=== PATIENT | female | born 1960 | race Caucasian/White ===

== ENCOUNTER 2016-10-13 09:58 | Emergency (ER) | payer BC ==
[2016-10-13] MEDS ORDERED: IPRATROPIUM/ALBUTEROL 0.5/3 MG 3 ML AMPUL.NEB INHALATION ONE (10:47)
--- NOTE | 2016-10-13 11:12 | RADIOLOGY REPORT ---
HISTORY: Cough COMPARISON: None. FINDINGS: 2 views of the chest obtained. Hyperinflated compatible with emphysema/COPD. There is no consolidation, effusion, pneumothorax or ma ss identified. Heart and mediastinal contours appear normal. No osseous lesion seen. IMPRESSION: 1. Hyperinflated lungs suggesting emphysema/COPD. 2. No radiographic evidence of active process in the chest. Final Electronic Signature: This report was electronically signed by Epifanio Mccray MD on 10/13/2016 11:10 AM. leti /
--- NOTE | 2016-10-13 11:46 | ER NURSING DOCUMENTATION ---
Nurse's Notes [facility] Name:Kenyatta Flanagan Age:56 yrs Sex:Female :1960 Arrival Date:10/13/2016 Time:09:58 Bed1 Private MD: Diagnosis:Upper Respiratory Infection (URI);Pneumonia Bacterial-POSSIBLE Presentation: 10/13 10:00 Acuity: BECKI 3 rh 10:10 Presenting complaint: Patient states: pt became sick with cough, sinus rh congestions, sore throat. She arrived in [place] on Thursday and c/o lightheadedness and dizziness today. Pt has productive cough. Transition of care: Home. 10:10 Method Of Arrival: Private Vehicle Triage Assessment: 10:11 General: Appears in no apparent distress, Behavior is cooperative. Pain: Complains of rh pain in chest. EENT: Oral mucosa is dry. Neuro: Level of Consciousness is awake, alert, obeys commands. Cardiovascular: Capillary refill < 3 seconds Chest pain is denied. Respiratory: Airway is patent Respiratory effort is even, unlabored, Breath sounds with wheezes in right posterior lower lobe Reports shortness of breath cough that is productive, the patient has mild shortness of breath. GI: Denies diarrhea, nausea, vomiting. : No deficits noted. Derm: Skin is intact, is healthy with good turgor, Skin is pink, warm & dry. Musculoskeletal: Circulation, motion, and sensation intact Range of motion intact in all extremities. Historical: - Allergies: No known drug Allergies; - Home Meds: 1. None - PMHx: None; - PSHx: None; - Tetanus: < 10 years. - Ebola Screening: : Patient negative for fever greater than or equal to 101.5 degrees Fahrenheit, and additional compatible Ebola Virus Disease symptoms. - Immunization history: Flu Vaccine < 1 year. - Social history: Smoking status: Patient states was never smoker of tobacco. Screenin:13 Infectious Disease Risk None. Abuse screen: Denies threats or abuse. Denies injuries rh from another. Nutritional screening: No deficits noted. Assessment: 10:13 See Triage Assessment done by same RN. 10:20 Reassessment: Pt does not want and IV or lab work completed until she has her chest rh x-ray done. . Vital Signs: 10:12 BP 95 / 68; Pulse 109; Resp 19; Temp 98.0(O); Pulse Ox 88% on R/A; Weight 68.04 kg; rh Height 5 ft. 4 in. (162.56 cm); Pain 410; 11:45 BP 109 / 63; Pulse 96; Resp 17; Pulse Ox 89% on R/A; rh 10:12 Body Mass Index 25.75 (68.04 kg, 162.56 cm) rh 11:45 Dr. Duque is fine with the oxygen sat on this patient. ED Course: 09:59 Patient arrived in ED. dp 10:00 Stacey Trevizo is Primary Nurse. 10:00 Triage completed. 10:00 Oxygen Oxygen administration via nasal cannula @ 2L/min. 10:13 Notified ED Physician of patient's arrival and chief complaint. Dr. Carty notified. rh 10:13 Valuables Remains with patient Patient has correct armband on for positive rh identification. Placed in gown. Bed in low position. Call light in reach. Side rails up X 1. 10:51 Derrick Carty MD is Attending Physician. tl1 Administered Medications: 10:43 Drug: DuoNeb (Albuterol 2.5 mg, Atrovent 0.5 mg); 3 ml; Route: Nebulizer; 11:46 Follow up: Response: Wheezing diminished rh Outcome: 10:56 Discharge ordered by . tl1 11:45 Discharged to home ambulatory, with family. 11:45 Condition: improved 11:45 Discharge Assessment: Patient awake, alert and oriented x 3. No cognitive and/or functional deficits noted. Patient verbalized understanding of disposition instructions. 11:45 Discharge instructions given to patient, family, Parent Instructed on discharge instructions, follow up and referral plans. medication usage, Demonstrated understanding of instructions, medications, Prescriptions given X 6 prescriptions 11:46 Patient left the ED. 10/14 11:35 Discharge F/U Call: Spoke with: patient. Have you filled your prescriptions? yes. Signatures: Derrick Carty MD MD tl1 Stacey Trevizo Aakash, Susan dp
--- NOTE | 2016-10-15 11:46 | ER PHYSICIAN DOCUMENTATION ---
Physician Documentation [facility] Name:Kenyatta Flanagan Age:56 yrs Sex:Female :1960 Arrival Date:10/13/2016 Time:09:58 Bed1 Private MD: Derrick Adamson Disposition: 10/13 11:50 Chart complete. tl1 Disposition: 10/13/16 10:56 Discharged to Home/Self Care. Impression: Upper Respiratory Infection (URI), Pneumonia Bacterial - POSSIBLE. - Condition is Good. - Discharge Instructions: PNEUMONIA (Adult), URI, Viral, No Abx (Adult). - Prescriptions for Ceftin 500 mg Oral Tablet - take 1 tablet by ORAL route every 12 hours for 10 days; 20 tablet. Tessalon Perles 100 mg Oral Capsule - take 1 capsule by ORAL route every 8 hours As needed; 15 capsule. Tussionex Pennkinetic ER 8- 10 mg/5 mL Oral Suspension, Sust. Release 12 hr - take 5 milliliter by ORAL route every 12 hours As needed; 120 milliliter. Zithromax Z- Lennox 250 mg Oral Tablet - take 1 tablet by ORAL route as directed for 5 days Day 1 - take two (2) tablets one time. Day 2, 3, 4 , 5 take one (1) tablet once daily.; 6 tablet. Ventolin HFA 90 mcg/actuation Inhalation HFA aerosol inhaler - inhale 2 puff by INHALATION route every 4 hours; 1 Inhaler. Prednisone 20 mg Oral Tablet - take 2 tablet by ORAL route once daily for 5 days; 10 tablet. - Medical Reconciliation form form. - Follow up: Private Physician; When: 4- 6 days; Reason: Recheck today's complaints, Continuance of care. - Problem is new. - Symptoms have improved. HPI: 11:00 This 56 yrs old Female presents to ER via Private Vehicle with complaints of tl1 Cough, Fever, Ear Pain, Sinus Pain. 10:00 The patient or guardian reports cough, that is intermittent, described as moderate, tl1 with productive sputum. Onset: The symptom(s)/episode began/occurred gradually, 4 hour(s) ago. Severity of symptoms: At their worst the symptoms were moderate, in the emergency department the symptoms are unchanged. Modifying factors: The symptoms are alleviated by nothing, the symptoms are aggravated by nothing. Associated signs and symptoms: Pertinent positives: rhinorrhea, sore throat, Pertinent negatives: chest pain, diarrhea, ear ache, fever, nausea, vomiting. Historical: - Allergies: No known drug Allergies; - Home Meds: 1. None - PMHx: None; - PSHx: None; - Tetanus: < 10 years. - Ebola Screening: : Patient negative for fever greater than or equal to 101.5 degrees Fahrenheit, and additional compatible Ebola Virus Disease symptoms. - Immunization history: Flu Vaccine < 1 year. - Social history: Smoking status: Patient states was never smoker of tobacco. ROS: 11:00 Constitutional: Positive for fatigue, malaise, Negative for body aches, chills. tl1 11:00 Eyes: Negative for blurry vision, photophobia, redness. 11:00 ENT: Positive for rhinorrhea, sinus congestion, sinus pain, sore throat, Negative for ear pain, difficulty swallowing, hoarseness. 11:00 Cardiovascular: Negative for chest pain. 11:00 Respiratory: Positive for shortness of breath, Negative for hemoptysis, pleurisy, wheezing. 11:00 All other systems are negative. Exam: 11:00 Constitutional: The patient appears in no acute distress, alert, awake, tl1 non-diaphoretic, non-toxic, well developed, well hydrated, well groomed, well nourished, somewhat fatigued 11:00 Head/face: Exam is negative for acute changes. 11:00 ENT: Mouth: is normal, Posterior pharynx: is normal, Tonsils: are normal in appearance. 11:00 Neck: Exam negative for acute changes, Lymph nodes: no appreciated lymphadenopathy. 11:00 Cardiovascular: Rate: normal, Rhythm: regular, Heart sounds: normal, Edema: is not appreciated, JVD: is not appreciated. 11:00 Respiratory: Respirations: normal, Breath sounds: are normal. 11:00 Abdomen/GI: Palpation: abdomen is soft and non-tender. 11:00 Musculoskeletal/extremity: Exam is negative for acute changes. 11:00 Skin: Exam negative for acute changes, rash. 11:00 Neuro: Exam negative for acute changes, Orientation: is normal. Vital Signs: 10:12 BP 95 / 68; Pulse 109; Resp 19; Temp 98.0(O); Pulse Ox 88% on R/A; Weight 68.04 kg; rh Height 5 ft. 4 in. (162.56 cm); Pain 4/10; 11:45 BP 109 / 63; Pulse 96; Resp 17; Pulse Ox 89% on R/A; rh 10:12 Body Mass Index 25.75 (68.04 kg, 162.56 cm) rh 11:45 Dr. Duque is fine with the oxygen sat on this patient. rh MDM: 10:04 Patient medically screened. tl1 11:50 Differential Diagnosis: Bronchitis Upper Respiratory Infection Sinusitis Pharyngitis tl1 Viral Syndrome Pneumonia. Data reviewed: vital signs, nurses notes, radiologic studies, plain films, and as a result, I will discharge patient. Test interpretation: by ED physician or midlevel provider: plain radiologic studies. Counseling: I had a detailed discussion with the patient and/or guardian regarding: the historical points, exam findings, and any diagnostic results supporting the discharge/admit diagnosis, radiology results, the need for outpatient follow up, to return to the emergency department if symptoms worsen or persist or if there are any questions or concerns that arise at home. Response to treatment: the patient's symptoms have mildly improved after treatment, and as a result, I will discharge patient. Special discussion: I discussed with the patient/guardian in detail that at this point there is no indication for admission to the hospital. It is understood, however, that if the symptoms persist or worsen the patient needs to return immediately for re-evaluation. CXR, to me, shows a possible subtle infiltrate in the RLL. She is mildly hypoxic. She felt a little better with a duoneb. I think there is a reasonable chance that she has a bacterial bronchitis vs early pneumonia with some element of bronchospasm causing her cough. The cough is quite bothersome at night. I recommended antibiotics, bronchodilators, and gave her a couple of cough suppressants to try. I asked her to return for any worsening. I don't think she needs admission.. 10/13 11:14 Order name: [id number]; Complete Time: 11:27 EDMS 10/14 07:40 Interpretation: NAD. SEE RADIOLOGIST REPORT. I, however am suspicious of a subtle RLL tl1 inf. 10/13 10:17 Order name: Oxygen; Complete Time: 10:17 Dispensed Medications: 10:43 Drug: DuoNeb (Albuterol 2.5 mg, Atrovent 0.5 mg); 3 ml; Route: Nebulizer; rh 11:46 Follow up: Response: Wheezing diminished rh Signatures: Derrick Carty MD MD tl1 Stacey Trevizo
== END 2016-10-13 11:46 | disposition home or self-care (01) ==
LOC: ER 09:58
DX: J06.9 Acute upper respiratory infection, unspecified (principal); R53.81 Other malaise; R53.83 Other fatigue; R91.8 Other nonspecific abnormal finding of lung field
CPT/HCPCS: 71020; 94640; 99284; J7620